=== PATIENT | female | born 1960 | race Caucasian/White ===

== ENCOUNTER 2024-07-01 00:43 | Emergency (ER) | payer MEDICARE, MEDICAID, SELFPAY ==
[2024-07-01 00:44] VITALS: BP 142/101; PULSE 80; RESP 16; TEMP 36.6; O2SAT 93; BMI 17.8
[2024-07-01] MEDS: morphine 10 MG/ML Syringe 8 MG IM (01:20)
[2024-07-01] MEDS: proMETHazine 25 MG/ML Syringe 6.25 MG IM (01:49)
[2024-07-01 02:12] VITALS: BP 140/85; PULSE 64; RESP 16; TEMP 37; O2SAT 95
== END 2024-07-01 02:23 | disposition home or self-care (01) ==
PROVIDERS: Emergency Provider Emergency Medicine; Visit Provider Emergency Medicine
DX: K94.23 Gastrostomy malfunction (principal); J44.9 Chronic obstructive pulmonary disease, unspecified
CPT/HCPCS: 74018; 96372; 99282